=== PATIENT | male | born 1960 | race Caucasian/White ===

== ENCOUNTER 2019-09-19 18:14 | Emergency (ER) | payer OTHER ==
[~2019-09-19] VITALS: Ht 180.3 cm; Wt 88.5 kg
[2019-09-19 18:27] VITALS: BP 175/95
[2019-09-19] MEDS ORDERED: HEARTBURN RELI200 MG PO (18:30)
== END 2019-09-19 19:23 | disposition home or self-care (01) ==
LOC: M.ERS 18:14
DX: S01.01XA Laceration without foreign body of scalp, initial encounter (principal); W26.8XXA Contact with other sharp object(s), not elsewhere classified, initial encounter; Y92.89 Other specified places as the place of occurrence of the external cause; Y93.89 Activity, other specified; Y99.8 Other external cause status

== ENCOUNTER 2019-09-27 17:42 | Emergency (ER) | payer OTHER ==
[~2019-09-27] VITALS: Ht 180.3 cm; Wt 83.9 kg
[~2019-09-27 17:42] MED LIST: HEARTBURN RELI200 MG PO
[2019-09-27 19:27] VITALS: BP 134/89
== END 2019-09-27 19:28 | disposition home or self-care (01) ==
LOC: M.ERS 17:42
DX: S01.81XD Laceration without foreign body of other part of head, subsequent encounter (principal); F41.9 Anxiety disorder, unspecified; W22.8XXD Striking against or struck by other objects, subsequent encounter

== ENCOUNTER → 2020-10-09 | Outpatient (CLI) | payer OTHER | LOC: M.CT 16:00 | PROVIDERS: ATTEND Family Medicine | DX: I25.10 Atherosclerotic heart disease of native coronary artery without angina pectoris (principal); K44.9 Diaphragmatic hernia without obstruction or gangrene; K76.0 Fatty (change of) liver, not elsewhere classified; R05 Cough; U07.1 COVID-19; J12.89 Other viral pneumonia ==

== ENCOUNTER → 2020-10-10 | Outpatient (CLI) | payer OTHER | LOC: M.CT 11:00 | PROVIDERS: ATTEND Family Medicine | DX: R91.8 Other nonspecific abnormal finding of lung field (principal); J98.4 Other disorders of lung; K76.0 Fatty (change of) liver, not elsewhere classified; U07.1 COVID-19; J12.89 Other viral pneumonia ==

== ENCOUNTER 2020-11-02 02:12 | Emergency (ER) | payer OTHER ==
[~2020-11-02] VITALS: Ht 180.3 cm; Wt 88.5 kg
[2020-11-02 02:56] LABS: ABSOLUTE BASOPHILS 0.1 thou/uL (0.0-0.2); ABSOLUTE EOSINOPHILS 0.5 thou/uL (0.0-0.7); ABSOLUTE MONOCYTES 0.6 thou/uL (0.0-1.2); ABSOLUTE NEUTROPHILS 3.5 thou/uL (1.6-8.1); HEMATOCRIT 42.1 % (42.0-52.0); HEMOGLOBIN 14.7 gm/dL (14.0-18.0); LYMPHOCYTES 38.8 %; MCH 31.1 pg (26.0-34.0); MCHC 34.8 g/dL (28.0-37.0); MCV 89.3 fL (80.0-100.0); MONOCYTES 8.2 %; MPV 8.4 fl. (7.2-11.1); NUCLEATED RBCS 0 /100WBC; PLATELET COUNT* 246 thou/uL (150-400); RBC 4.71 mil/uL (4.50-6.00); RDW-CV 13.8 % (10.5-14.5); WBC 7.7 thou/uL (4.0-11.0)
[2020-11-02 03:01] LABS: CALCIUM 8.9 mg/dL (8.5-10.1); CREATININE 1.2 mg/dL (0.6-1.3); POTASSIUM 3.5 mmol/L (3.5-5.1)
[2020-11-02 03:06] LABS: PROTIME 10.2 Seconds (9.20-11.50)
[2020-11-02 03:12] LABS: ALBUMIN 3.6 g/dL (3.4-5.0); TOTAL BILIRUBIN 0.3 mg/dL (<0.1-1.0); TOTAL PROTEIN 7.1 g/dL (6.4-8.2)
[2020-11-02 05:47] VITALS: BP 107/73
--- NOTE | 2020-11-02 13:53 | EKG ---
[place] [address] ELECTROCARDIOGRAM REPORT Name: NOLAN DIMAS Room: [facility]#: [id number] Admission: 11/02/20 Attend Phys: Discharge: 11/02/20 Date of : 58 Date of Service: 11/02/20 0217 Report #: [id number] THIS REPORT FOR: //name// [facility] ED Test Date: 2020-11-02 Test Time: 02:17:36 Pat Name: NOLAN DIMAS Department: Room: Gender: [place]: [place] : 1960 Requested By: Tonya Belcher Order Number: [id number] MD: Quinn Narvaez Measurements Intervals [place] Rate: 124 P: 53 [place]: 118 QRS: -18 QRSD: 81 T: -29 QT: 406 QTc: 584 Interpretive Statements Sinus tachycardia Borderline left axis deviation Abnormal R-wave progression, early transition Borderline repolarization abnormality Prolonged QT interval No previous ECG available for comparison Electronically Signed On 11-02-2020 13:53:08 [employer] by Quinn Narvaez [email or web address] <ELECTRONICALLY SIGNED> By: Anjali Narvaez MD, [facility] 11/02/20 1353 6 6 F. Quinn Narvaez MD, [facility] /EPI
== END 2020-11-02 05:47 | disposition home or self-care (01) ==
LOC: M.ERS 02:12
PROVIDERS: Personal Emergency Response Attendant
DX: R00.0 Tachycardia, unspecified (principal)

== ENCOUNTER → 2020-11-21 | Outpatient (CLI) | payer OTHER | LOC: M.LAB 16:17 | PROVIDERS: ATTEND Internal Medicine | DX: I10 Essential (primary) hypertension (principal) ==

== ENCOUNTER → 2020-12-20 | Outpatient (CLI) | payer OTHER | LOC: M.CT 15:11 | PROVIDERS: ATTEND Family Medicine | DX: R91.8 Other nonspecific abnormal finding of lung field (principal); K44.9 Diaphragmatic hernia without obstruction or gangrene; J98.4 Other disorders of lung; Z86.16 Personal history of COVID-19 ==

== ENCOUNTER → 2021-01-28 | Outpatient (CLI) | payer OTHER ==
--- NOTE | 2021-02-04 08:43 | PF ---
[address] [address] PULMONARY FUNCTION REPORT Name: NOLAN DIMAS Room: [facility]#: [id number] Admission: 01/28/21 Attend Phys: Shay Kuhn MD Discharge: Date of : 58 Report #: [id number] THIS REPORT FOR: cc: Reshma Rojas Linda J. DO Pervez, Adeel MD ~ DATE OF SERVICE: 01/28/2021 The FEV1/FVC ratio is normal at 80% with an FVC mildly decreased to 77% and FEV1 normal at 81%. The ZIM84-88 is also normal at 102%. After the administration of a bronchodilator, there is no significant increase in any of these values. The patient's post-bronchodilator FEV1 is noted to be 3.22 liters. The total lung capacity is normal at 100% with a residual volume increased to 129%. The DLCO as adjusted for hemoglobin is decreased to 42%. IMPRESSION: 1. There is a mild restrictive pattern on spirometry restriction; however, is not seen on lung volumes. As the patient's residual volume is elevated, I suspect that the most likely etiology of this is mild underlying obstruction without reversibility, poor effort and neuromuscular weakness will be possible, but much less likely possible etiologies of this finding. 2. There is mild hyperinflation of the lung volumes. Total lung capacity is normal and as above. The residual volume is increased to 129%, this is likely due to mild underlying obstruction. The DLCO as adjusted for hemoglobin is decreased to 42%. <ELECTRONICALLY SIGNED> By: Shay Kuhn MD 02/04/21 0843 1712 2215Arashmi Kuhn MD /nt
== END ==
LOC: M.PUL 06:46
PROVIDERS: ATTEND Internal Medicine Critical Care Medicine
DX: J98.8 Other specified respiratory disorders (principal); J84.10 Pulmonary fibrosis, unspecified; Z86.16 Personal history of COVID-19

== ENCOUNTER → 2021-04-22 | Outpatient (CLI) | payer OTHER | LOC: M.CT 16:00 | PROVIDERS: ATTEND Internal Medicine Critical Care Medicine | DX: J84.10 Pulmonary fibrosis, unspecified (principal) ==